=== PATIENT | male | born 1990 | race Caucasian/White ===

== ENCOUNTER 2016-03-27 15:35 | Emergency (ER) | payer OTHER ==
[~2016-03-27] VITALS: Ht 172.7 cm; Wt 80.0 kg
[~2016-03-27 15:35] MED LIST: NOCURR
[2016-03-27 15:41] VITALS: BP 141/68
[2016-03-27] MEDS ORDERED: TraMADol HCL 50 MG TABLET PO ONE (17:15)
== END 2016-03-27 18:33 | disposition home or self-care (01) ==
LOC: EMS 15:43
DX: S60.221A Contusion of right hand, initial encounter (principal); F14.90 Cocaine use, unspecified, uncomplicated; F12.90 Cannabis use, unspecified, uncomplicated; R20.0 Anesthesia of skin; F19.90 Other psychoactive substance use, unspecified, uncomplicated; Z88.0 Allergy status to penicillin; W50.0XXA Accidental hit or strike by another person, initial encounter; Y93.89 Activity, other specified; Y92.89 Other specified places as the place of occurrence of the external cause; Y99.8 Other external cause status
CPT/HCPCS: 99284

== ENCOUNTER 2016-04-03 11:46 | Emergency (ER) | payer OTHER ==
[~2016-04-03] VITALS: Ht 170.2 cm; Wt 63.5 kg
[2016-04-03 14:43] VITALS: BP 134/81
== END 2016-04-03 14:44 | disposition home or self-care (01) ==
LOC: EMS 11:48
DX: R07.81 Pleurodynia (principal); F14.90 Cocaine use, unspecified, uncomplicated; F12.90 Cannabis use, unspecified, uncomplicated; F19.90 Other psychoactive substance use, unspecified, uncomplicated; Z88.0 Allergy status to penicillin
CPT/HCPCS: 99283

== ENCOUNTER 2016-11-14 03:32 | Emergency (ER) | payer OTHER ==
[~2016-11-14] VITALS: Ht 167.6 cm; Wt 98.0 kg
[2016-11-14 03:40] VITALS: BP 150/81
== END 2016-11-14 04:04 | disposition home or self-care (01) ==
LOC: EMS 03:33
DX: F29 Unspecified psychosis not due to a substance or known physiological condition (principal); F12.10 Cannabis abuse, uncomplicated; F14.10 Cocaine abuse, uncomplicated; F15.10 Other stimulant abuse, uncomplicated; Z88.0 Allergy status to penicillin; Z02.89 Encounter for other administrative examinations
CPT/HCPCS: 99283; 99284

== ENCOUNTER 2017-06-04 15:34 | Inpatient (IN) | payer MEDICAID, OTHER ==
[~2017-06-04] VITALS: Ht 172.7 cm; Wt 99.8 kg
[2017-06-04] MEDS ORDERED: HALO10 PO (15:48)
[2017-06-04] MEDS ORDERED: HALO5 PO (15:48)
[2017-06-04] MEDS ORDERED: VIST50 PO (15:48)
[2017-06-04 16:13] LABS: AMPHET/METH SCREEN,URINE NEGATIVE (NEGATIVE); BARBITURATE SCREEN, URINE NEGATIVE (NEGATIVE); BENZODIAZEPINES SCREEN,URINE NEGATIVE (NEGATIVE); CANNABINOID SCREEN,URINE NEGATIVE (NEGATIVE); COCAINE SCREEN,URINE NEGATIVE (NEGATIVE); METHADONE SCREEN, URINE NEGATIVE (NEGATIVE); OPIATE SCREEN,URINE NEGATIVE (NEGATIVE); PHENCYCLIDINE SCREEN,URINE NEGATIVE (NEGATIVE)
[2017-06-04 16:21] LABS: BASOPHILS % (AUTO) 0.7 % (0.0-2.0); EOSINOPHILS % (AUTO) 2.9 % (1.0-6.0); HEMOGLOBIN 13.6 g/dL (13.5-17.5); LYMPHOCYTES # (AUTO) 2.2 K/uL (1.0-4.8); LYMPHOCYTES % (AUTO) 31.4 % (22.0-44.0); MEAN CORPUSCULAR HEMOGLOBIN 31.6 pg (26.0-34.0); MEAN CORPUSCULAR VOLUME 93 fL (80-100); MONOCYTES # (AUTO) 0.7 K/uL (0.1-1.0); MONOCYTES % (AUTO) 9.6 % (2.0-9.0); NEUTROPHILS # (AUTO) 3.8 K/uL (1.8-7.7); NEUTROPHILS % (AUTO) 55.4 % (40.0-70.0); PLATELET COUNT (AUTO) 248 K/uL (150-450); RED CELL DISTRIBUTION WIDTH 14.2 % (11.5-14.5)
[2017-06-04 16:29] LABS: ANION GAP 6 mmol/L (8-16); CALCIUM, TOTAL 8.4 mg/dL (8.8-10.5); CARBON DIOXIDE 28 mmol/L (22-29); CHLORIDE 104 mmol/L (98-107); CREATININE 0.91 mg/dL (0.60-1.30); GLOMERULAR FILTR. RATE CALC > 60 mL/min (>60); GLUCOSE,RANDOM 117 mg/dL (70-110); POTASSIUM 3.8 mmol/L (3.5-5.1); SODIUM SERUM 138 mmol/L (136-145); UREA NITROGEN, BLOOD 11 mg/dL (7-18)
[2017-06-04 16:36] LABS: ALANINE AMINOTRANSFERASE 128 U/L (12-78); ALBUMIN 3.9 g/dL (3.4-5.0); ALKALINE PHOSPHATASE 88 U/L (46-116); ASPARTATE AMINOTRANSFERASE 41 U/L (15-37); BILIRUBIN,TOTAL 0.4 mg/dL (0.1-1.0); TOTAL PROTEIN, SERUM 7.2 g/dL (6.4-8.2)
[2017-06-04 16:37] LABS: ACETAMINOPHEN < 2 mcg/mL (10-30)
[2017-06-04 16:43] LABS: SALICYLATE 1.8 mg/dL (2.8-20.0)
[2017-06-04] MEDS ORDERED: HALOPERIDOL 5 MG TABLET PO PRN (17:45)
[2017-06-04] MEDS: LORazepam 2 MG TABLET PO PRN (18:25)
[2017-06-05 00:41] VITALS: BP 121/76
[2017-06-05] MEDS ORDERED: INFLUENZA VIRUS VACCINE QVS 2017-18 (3YR+)/PF 60 MCG/0.5 ML SYRINGE IM ONE (00:45)
[2017-06-05] MEDS: LORazepam 2 MG TABLET PO PRN ×2 (00:51→20:21)
[2017-06-05] MEDS: ZOLPIDEM TARTRATE 10 MG TABLET PO PRN (00:51)
[2017-06-05] MEDS ORDERED: PNEUMOCOCCAL VACCINE POLYVALENT 0.5 ML VIAL [PPSV23] IM ONE (06:30)
[2017-06-05 08:28] VITALS: BP 116/68
[2017-06-05] MEDS ORDERED: BACITRACIN 28.4 GM OINTMENT TP PRN (08:45)
[2017-06-05] MEDS ORDERED: ACETAMINOPHEN 325 MG TABLET PO PRN (08:45)
[2017-06-05] MEDS ORDERED: LOPERAMIDE HCL 2 MG CAPSULE PO PRN (08:45)
[2017-06-05] MEDS ORDERED: ALBUTEROL SULFATE HFA 90 MCG/PUFF 8 GM INHALER IH PRN (08:45)
[2017-06-05] MEDS ORDERED: BENZOCAINE/MENTHOL LOZENGE MM PRN (08:45)
[2017-06-05] MEDS ORDERED: MAG HYDROX/AL HYDROX/SIMETH ES 30 ML SUSPENSION UDCUP PO PRN (08:45)
[2017-06-05] MEDS ORDERED: CloNIDine HCL 0.1 MG TABLET PO PRN (08:45)
[2017-06-05] MEDS ORDERED: ONDANSETRON HCL 4 MG TABLET PO PRN (08:45)
[2017-06-05] MEDS ORDERED: IBUPROFEN 600 MG TABLET PO PRN (08:45)
[2017-06-05] MEDS ORDERED: PETROLATUM,WHITE 71 GM JELLY TP PRN (08:45)
[2017-06-05] MEDS ORDERED: MAGNESIUM HYDROXIDE SUSPENSION 30 ML UDCUP PO PRN (08:45)
[2017-06-05] MEDS ORDERED: DOCUSATE SODIUM 100 MG CAPSULE PO SCH (09:00)
[2017-06-05] MEDS ORDERED: OMEPRAZOLE 20 MG CAPSULE PO SCH (09:00)
[2017-06-05 16:19] VITALS: BP 122/68
[2017-06-06 06:31] VITALS: BP 120/81
[2017-06-06 08:30] VITALS: BP 113/69
[2017-06-06] MEDS: FLUoxetine HCL 20 MG CAPSULE PO SCH (08:41)
[2017-06-06] MEDS: HALOPERIDOL 10 MG TABLET PO SCH ×2 (08:41→16:30)
[2017-06-06 09:04] LABS: ALANINE AMINOTRANSFERASE 133 U/L (12-78); ALBUMIN 3.9 g/dL (3.4-5.0); ALKALINE PHOSPHATASE 78 U/L (46-116); ANION GAP 11 mmol/L (8-16); ASPARTATE AMINOTRANSFERASE 47 U/L (15-37); BILIRUBIN,TOTAL 0.4 mg/dL (0.1-1.0); CALCIUM, TOTAL 9.1 mg/dL (8.8-10.5); CARBON DIOXIDE 28 mmol/L (22-29); CHLORIDE 101 mmol/L (98-107); CHOL/HDL RATIO 6.1 (4.2-7.3); CHOLESTEROL 298 mg/dL (131-200); CREATININE 0.79 mg/dL (0.60-1.30); GLOMERULAR FILTR. RATE CALC > 60 mL/min (>60); GLUCOSE,RANDOM 80 mg/dL (70-110); HDL CHOLESTEROL 49 mg/dL (40-60); HEMOGLOBIN A1C 5.2 % (4.5-6.2); LDL CHOL (CALC.) 208 mg/dL (0-130); POTASSIUM 3.7 mmol/L (3.5-5.1); SODIUM SERUM 140 mmol/L (136-145); THYROID STIMULATING HORMONE 1.64 uIU/mL (0.36-3.74); TOTAL PROTEIN, SERUM 7.5 g/dL (6.4-8.2); TRIGLYCERIDES 204 mg/dL (15-150); UREA NITROGEN, BLOOD 15 mg/dL (7-18)
[2017-06-06 16:21] VITALS: BP 119/72
[2017-06-06] MEDS: LORazepam 2 MG TABLET PO PRN (16:30)
[2017-06-06] MEDS: ZOLPIDEM TARTRATE 10 MG TABLET PO PRN (20:07)
[2017-06-07 06:56] VITALS: BP 120/81
[2017-06-07 08:34] VITALS: BP 100/55
[2017-06-07] MEDS: FLUoxetine HCL 20 MG CAPSULE PO SCH (09:25)
[2017-06-07] MEDS: HALOPERIDOL 10 MG TABLET PO SCH ×2 (09:25→17:03)
[2017-06-07] MEDS: CHOLECALCIFEROL (VIT D3) 1,000 UNITS TABLET PO SCH (09:25)
[2017-06-07 16:40] VITALS: BP 115/89
[2017-06-07] MEDS: LORazepam 2 MG TABLET PO PRN (17:03)
[2017-06-07] MEDS: ZOLPIDEM TARTRATE 10 MG TABLET PO PRN (20:23)
[2017-06-08 01:22] VITALS: BP 105/60
[2017-06-08 08:48] VITALS: BP 103/64
[2017-06-08] MEDS: FLUoxetine HCL 20 MG CAPSULE PO SCH (08:49)
[2017-06-08] MEDS: HALOPERIDOL 10 MG TABLET PO SCH ×2 (08:49→16:14)
[2017-06-08] MEDS: CHOLECALCIFEROL (VIT D3) 1,000 UNITS TABLET PO SCH (08:49)
[2017-06-08] MEDS: LORazepam 2 MG TABLET PO PRN (14:37)
[2017-06-08 16:32] VITALS: BP 119/71
[2017-06-08] MEDS: ZOLPIDEM TARTRATE 10 MG TABLET PO PRN (20:25)
[2017-06-09 01:29] VITALS: BP 121/82
[2017-06-09 08:31] VITALS: BP 109/85
[2017-06-09] MEDS: CHOLECALCIFEROL (VIT D3) 1,000 UNITS TABLET PO SCH (09:18)
[2017-06-09] MEDS: FLUoxetine HCL 20 MG CAPSULE PO SCH (09:18)
[2017-06-09] MEDS: HALOPERIDOL 10 MG TABLET PO SCH (09:18)
[2017-06-09] MEDS ORDERED: HALO10 PO (09:54)
[2017-06-09] MEDS ORDERED: FLUO-191 PO (09:54)
[2017-06-09] MEDS ORDERED: VITAD1000 PO (09:55)
== END 2017-06-09 12:00 | disposition home or self-care (01) | DRG 750 ==
LOC: EMS 15:35 → B2S 21:30
PROVIDERS: ADMIT Psychiatry & Neurology Psychiatry; ATTEND Psychiatry & Neurology Psychiatry
PROC: 3E0234Z Introduction of Serum, Toxoid and Vaccine into Muscle, Percutaneous Approach (ICD-10-PCS; principal; 2017-06-05)
DX: F20.0 Paranoid schizophrenia (principal); R74.0 Nonspecific elevation of levels of transaminase and lactic acid dehydrogenase [LDH]; E55.9 Vitamin D deficiency, unspecified; E66.9 Obesity, unspecified; F41.9 Anxiety disorder, unspecified; F90.9 Attention-deficit hyperactivity disorder, unspecified type; G47.00 Insomnia, unspecified; F17.210 Nicotine dependence, cigarettes, uncomplicated; E78.5 Hyperlipidemia, unspecified; T43.592A Poisoning by other antipsychotics and neuroleptics, intentional self-harm, initial encounter; F32.9 Major depressive disorder, single episode, unspecified; K76.9 Liver disease, unspecified; Y92.89 Other specified places as the place of occurrence of the external cause; Z91.5 Personal history of self-harm; Z68.33 Body mass index [BMI] 33.0-33.9, adult; Z23 Encounter for immunization; Z88.0 Allergy status to penicillin; Z79.899 Other long term (current) drug therapy; Z71.6 Tobacco abuse counseling
CPT/HCPCS: 80074; 82306; 83036; 83735; 84443; 90471; 93005; 96372; 99285; G0480; G0481

== ENCOUNTER 2017-06-18 10:43 | Inpatient (IN) | payer MEDICAID, OTHER ==
[~2017-06-18] VITALS: Ht 172.7 cm; Wt 104.1 kg
[~2017-06-18 10:43] MED LIST changes: +FLUO-191 PO; +HALO10 PO; -NOCURR; +VITAD1000 PO
[2017-06-18 11:18] LABS: BASOPHILS % (AUTO) 0.9 % (0.0-2.0); EOSINOPHILS % (AUTO) 2.5 % (1.0-6.0); HEMATOCRIT 39.1 % (41-53); HEMOGLOBIN 13.4 g/dL (13.5-17.5); LYMPHOCYTES # (AUTO) 2.2 K/uL (1.0-4.8); LYMPHOCYTES % (AUTO) 28.1 % (22.0-44.0); MEAN CORPUSCULAR HEMOGLOBIN 31.8 pg (26.0-34.0); MEAN CORPUSCULAR HGB CONC 34.2 G/dL (31.0-37.0); MEAN CORPUSCULAR VOLUME 93 fL (80-100); MONOCYTES # (AUTO) 0.7 K/uL (0.1-1.0); MONOCYTES % (AUTO) 8.3 % (2.0-9.0); NEUTROPHILS # (AUTO) 4.8 K/uL (1.8-7.7); NEUTROPHILS % (AUTO) 60.2 % (40.0-70.0); PLATELET COUNT (AUTO) 258 K/uL (150-450); RED CELL DISTRIBUTION WIDTH 13.9 % (11.5-14.5)
[2017-06-18 11:27] LABS: ANION GAP 6 mmol/L (8-16); CALCIUM, TOTAL 8.9 mg/dL (8.8-10.5); CARBON DIOXIDE 29 mmol/L (22-29); CHLORIDE 102 mmol/L (98-107); CREATININE 0.82 mg/dL (0.60-1.30); GLOMERULAR FILTR. RATE CALC > 60 mL/min (>60); GLUCOSE,RANDOM 100 mg/dL (70-110); POTASSIUM 3.9 mmol/L (3.5-5.1); SODIUM SERUM 137 mmol/L (136-145); UREA NITROGEN, BLOOD 11 mg/dL (7-18)
[2017-06-18 11:33] LABS: ALANINE AMINOTRANSFERASE 111 U/L (12-78); ALBUMIN 3.7 g/dL (3.4-5.0); ALKALINE PHOSPHATASE 99 U/L (46-116); ASPARTATE AMINOTRANSFERASE 38 U/L (15-37); BILIRUBIN,TOTAL 0.3 mg/dL (0.1-1.0); TOTAL PROTEIN, SERUM 7.2 g/dL (6.4-8.2)
[2017-06-18 11:41] LABS: ACETAMINOPHEN < 2 mcg/mL (10-30); SALICYLATE 1.8 mg/dL (2.8-20.0)
[2017-06-18 11:46] LABS: AMPHET/METH SCREEN,URINE NEGATIVE (NEGATIVE); BARBITURATE SCREEN, URINE NEGATIVE (NEGATIVE); BENZODIAZEPINES SCREEN,URINE NEGATIVE (NEGATIVE); CANNABINOID SCREEN,URINE POSITIVE (NEGATIVE); COCAINE SCREEN,URINE NEGATIVE (NEGATIVE); METHADONE SCREEN, URINE NEGATIVE (NEGATIVE); OPIATE SCREEN,URINE NEGATIVE (NEGATIVE)
[2017-06-18 12:01] LABS: PHENCYCLIDINE SCREEN,URINE NEGATIVE (NEGATIVE)
[2017-06-18] MEDS ORDERED: LORazepam 2 MG/ML VIAL IM ONE (14:30)
[2017-06-18] MEDS ORDERED: HALOPERIDOL LACTATE 5 MG/ML VIAL IM ONE (14:30)
[2017-06-18] MEDS ORDERED: ACETAMINOPHEN 325 MG TABLET PO ONE (17:00)
[2017-06-18] MEDS: HALOPERIDOL 10 MG TABLET PO SCH (17:49)
[2017-06-18 19:10] VITALS: BP 119/73
[2017-06-18] MEDS ORDERED: INFLUENZA VIRUS VACCINE QVS 2017-18 (3YR+)/PF 60 MCG/0.5 ML SYRINGE IM ONE (20:15)
[2017-06-19 05:57] VITALS: BP 122/67
[2017-06-19 08:07] VITALS: BP 107/60
[2017-06-19] MEDS: CHOLECALCIFEROL (VIT D3) 1,000 UNITS TABLET PO SCH (08:23)
[2017-06-19] MEDS: HALOPERIDOL 10 MG TABLET PO SCH ×2 (08:23→16:01)
[2017-06-19] MEDS ORDERED: FLUoxetine HCL 20 MG CAPSULE PO SCH (09:00)
[2017-06-19] MEDS ORDERED: MAGNESIUM HYDROXIDE SUSPENSION 30 ML UDCUP PO PRN (10:00)
[2017-06-19] MEDS ORDERED: IBUPROFEN 600 MG TABLET PO PRN (10:00)
[2017-06-19] MEDS ORDERED: MAG HYDROX/AL HYDROX/SIMETH ES 30 ML SUSPENSION UDCUP PO PRN (10:00)
[2017-06-19] MEDS ORDERED: LOPERAMIDE HCL 2 MG CAPSULE PO PRN (10:00)
[2017-06-19] MEDS ORDERED: ALBUTEROL SULFATE HFA 90 MCG/PUFF 8 GM INHALER IH PRN (10:00)
[2017-06-19] MEDS ORDERED: PETROLATUM,WHITE 71 GM JELLY TP PRN (10:00)
[2017-06-19] MEDS ORDERED: BENZOCAINE/MENTHOL LOZENGE MM PRN (10:00)
[2017-06-19] MEDS ORDERED: ONDANSETRON HCL 4 MG TABLET PO PRN (10:00)
[2017-06-19] MEDS ORDERED: ACETAMINOPHEN 325 MG TABLET PO PRN (10:00)
[2017-06-19] MEDS ORDERED: CloNIDine HCL 0.1 MG TABLET PO PRN (10:00)
[2017-06-19] MEDS ORDERED: BACITRACIN 28.4 GM OINTMENT TP PRN (10:00)
[2017-06-19 16:07] VITALS: BP 121/69
[2017-06-20 04:20] VITALS: BP 123/75
[2017-06-20 09:01] VITALS: BP 113/75
[2017-06-20] MEDS: HALOPERIDOL 10 MG TABLET PO SCH ×2 (09:43→16:09)
[2017-06-20] MEDS: CHOLECALCIFEROL (VIT D3) 1,000 UNITS TABLET PO SCH (09:44)
[2017-06-20] MEDS: FLUoxetine HCL 20 MG CAPSULE PO SCH (09:44)
[2017-06-20] MEDS: LORazepam 2 MG TABLET PO PRN (13:16)
[2017-06-20] MEDS: HALOPERIDOL 5 MG TABLET PO PRN (13:16)
[2017-06-20 16:07] VITALS: BP 134/73
[2017-06-20] MEDS ORDERED: PALI156D IM (21:44)
[2017-06-21 06:40] VITALS: BP 110/68
[2017-06-21 08:32] VITALS: BP 113/78
[2017-06-21] MEDS: FLUoxetine HCL 20 MG CAPSULE PO SCH (09:01)
[2017-06-21] MEDS: HALOPERIDOL 10 MG TABLET PO SCH ×2 (09:01→16:18)
[2017-06-21] MEDS: CHOLECALCIFEROL (VIT D3) 1,000 UNITS TABLET PO SCH (09:01)
[2017-06-21 12:30] VITALS: BP 122/80
[2017-06-21] MEDS: LORazepam 2 MG TABLET PO PRN ×2 (12:31→16:31)
[2017-06-21 16:05] VITALS: BP 114/74
[2017-06-22 06:28] VITALS: BP 120/69
[2017-06-22 08:53] VITALS: BP 106/75
[2017-06-22] MEDS: FLUoxetine HCL 20 MG CAPSULE PO SCH (09:26)
[2017-06-22] MEDS: HALOPERIDOL 10 MG TABLET PO SCH (09:26)
[2017-06-22] MEDS: CHOLECALCIFEROL (VIT D3) 1,000 UNITS TABLET PO SCH (09:26)
[2017-06-22] MEDS: LORazepam 2 MG TABLET PO PRN ×2 (09:30→16:13)
[2017-06-22] MEDS: HALOPERIDOL 5 MG TABLET PO SCH ×2 (16:13→21:24)
[2017-06-22] MEDS: BENZTROPINE MESYLATE 1 MG TABLET PO SCH (16:13)
[2017-06-22 16:21] VITALS: BP 119/79
[2017-06-22] MEDS: ZOLPIDEM TARTRATE 10 MG TABLET PO PRN (22:12)
[2017-06-23 06:25] VITALS: BP 108/62
[2017-06-23] MEDS: BENZTROPINE MESYLATE 1 MG TABLET PO SCH ×2 (08:50→16:45)
[2017-06-23] MEDS: FLUoxetine HCL 20 MG CAPSULE PO SCH (08:50)
[2017-06-23] MEDS: CHOLECALCIFEROL (VIT D3) 1,000 UNITS TABLET PO SCH (08:50)
[2017-06-23] MEDS: HALOPERIDOL 5 MG TABLET PO SCH (08:50)
[2017-06-23 08:56] VITALS: BP 110/77
[2017-06-23] MEDS: LORazepam 2 MG TABLET PO PRN (09:13)
[2017-06-23 16:14] VITALS: BP 111/86
[2017-06-23] MEDS ORDERED: BENZOCAINE/MENTHOL LOZENGE MM PRN (18:30)
[2017-06-23] MEDS: ZOLPIDEM TARTRATE 10 MG TABLET PO PRN (21:00)
[2017-06-23] MEDS: PALIPERIDONE 6 MG ER TABLET PO SCH (21:00)
[2017-06-23 22:30] VITALS: BP 116/78
[2017-06-24 00:49] VITALS: BP 118/70
[2017-06-24 08:28] VITALS: BP 112/73
[2017-06-24] MEDS: FLUoxetine HCL 20 MG CAPSULE PO SCH (09:07)
[2017-06-24] MEDS: BENZTROPINE MESYLATE 1 MG TABLET PO SCH ×2 (09:07→16:17)
[2017-06-24] MEDS: CHOLECALCIFEROL (VIT D3) 1,000 UNITS TABLET PO SCH (09:07)
[2017-06-24] MEDS: PALIPERIDONE 6 MG ER TABLET PO SCH ×2 (09:07→20:56)
[2017-06-24 16:16] VITALS: BP 122/76
[2017-06-24] MEDS: LORazepam 2 MG TABLET PO PRN (16:17)
[2017-06-24] MEDS: ZOLPIDEM TARTRATE 10 MG TABLET PO PRN (20:56)
[2017-06-25 00:15] VITALS: BP 120/81
[2017-06-25] MEDS: HALOPERIDOL 5 MG TABLET PO PRN (01:24)
[2017-06-25] MEDS: LORazepam 2 MG TABLET PO PRN (01:24)
[2017-06-25] MEDS ORDERED: PALI6 PO (02:14)
[2017-06-25] MEDS ORDERED: FLUO-191 PO (02:15)
[2017-06-25] MEDS ORDERED: BENZ1TAB10 PO (02:15)
[2017-06-25] MEDS ORDERED: VITAD1000 PO (02:16)
== END 2017-06-25 07:13 | disposition home or self-care (01) | DRG 750 ==
LOC: EMS 10:44 → B2S 17:34
PROVIDERS: ADMIT Psychiatry & Neurology Psychiatry; ATTEND Psychiatry & Neurology Psychiatry
DX: F20.0 Paranoid schizophrenia (principal); R45.851 Suicidal ideations; R74.0 Nonspecific elevation of levels of transaminase and lactic acid dehydrogenase [LDH]; E55.9 Vitamin D deficiency, unspecified; E66.9 Obesity, unspecified; F12.90 Cannabis use, unspecified, uncomplicated; F17.200 Nicotine dependence, unspecified, uncomplicated; F90.9 Attention-deficit hyperactivity disorder, unspecified type; G47.00 Insomnia, unspecified; F32.9 Major depressive disorder, single episode, unspecified; K76.9 Liver disease, unspecified; Z79.899 Other long term (current) drug therapy; Z88.0 Allergy status to penicillin; Z91.5 Personal history of self-harm; Z68.34 Body mass index [BMI] 34.0-34.9, adult
CPT/HCPCS: 87081; 90471; 93005; 96372; 99285; G0480; G0481; J1630; J2060; J3535

== ENCOUNTER 2017-08-04 20:07 | Emergency (ER) | payer MEDICAID ==
[~2017-08-04 20:07] MED LIST changes: +BENZ1TAB10 PO; -HALO10 PO; +PALI6 PO
== END 2017-08-04 21:08 | disposition left against medical advice (07) ==
LOC: EMS 20:08
DX: K92.0 Hematemesis (principal); Z53.21 Procedure and treatment not carried out due to patient leaving prior to being seen by health care provider